=== PATIENT | male | born 1945 | race Caucasian/White ===

== ENCOUNTER → 2018-06-19 | Outpatient (CLI) | payer MEDICARE, OTHER ==
--- NOTE | 2018-06-19 09:44 | RADIOLOGY REPORT (SQ) ---
EXAM DESCRIPTION: U/S ABDOMEN COMPLETE W/O DOP COMPLETED DATE/TIME: 06/19/2018 8:37 am REASON FOR STUDY: UNSPECIFIED ADOMINAL PAIN E80.7 DISORDER OF BILIRUBIN METABOLISM, UNSPECIFIED I71 .2 THORACIC AORTIC ANEURYSM, WITHOUT RUPTURE R10.9 UNSPECIFIED ABDOMINAL PAIN COMPARISON: CT abdomen pelvis 05/06/2016 TECHNIQUE: Dynamic and static grayscale images acquired of the abdomen and recorded on PACS. Additio nal selected color Doppler and spectral images recorded. LIMITATIONS: Midline bowel gas FINDINGS: PANCREAS: Not well seen LIVER: No masses. Benign 1.4 cm cyst left lobe liver. Echotexture otherwise unremarkable. LIVER VASCULATURE: Normal directional flow of the main portal vein and hepatic veins. GALLBLADDER: There is debris in the gallbladder without shadowing compatible with sludge. No gallbla dder wall thickening or pericholecystic fluid. ULTRASOUND-DETECTED CARDENAS'S SIGN: Negative. INTRAHEPATIC DUCTS AND COMMON DUCT: CBD and intrahepatic ducts normal caliber. No filling defects. INFERIOR VENA CAVA: Not well seen AORTA: No aneurysm. RIGHT KIDNEY: Normal size. Normal echogenicity. No solid or suspicious masses. No hydronephros is. No calcifications. LEFT KIDNEY: Normal size. Normal echogenicity. No solid or suspicious masses. No hydronephrosi s. No calcifications. SPLEEN: Normal size. No solid masses. PERITONEAL AND PLEURAL SPACES: No ascites or effusions. OTHER: No other significant finding. IMPRESSION: Midline pancreas not well seen. Minimal sludge in the gallbladder without shadowing gallstones. No gallbladder wall thickening or pe richolecystic fluid TECHNICAL DOCUMENTATION: JOB ID: [id number] [employer]- All Rights Reserved Reading location - IP/workstation name: [email or web address]
== END ==
LOC: RAD 09:18
PROVIDERS: ATTEND Physician Assistant Medical
DX: I71.2 Thoracic aortic aneurysm, without rupture (principal); R10.9 Unspecified abdominal pain; E80.7 Disorder of bilirubin metabolism, unspecified
CPT/HCPCS: 76700